=== PATIENT | female | born 1960 | race Caucasian/White ===

== ENCOUNTER 2022-09-19 13:24 | Emergency (ER) | payer OTHER, BC ==
[~2022-09-19] VITALS: Ht 167.6 cm; Wt 100.2 kg
[2022-09-19 13:28] VITALS: BP 142/100
[2022-09-19] MEDS ORDERED: HYDR1TAB94 PO (14:42)
== END 2022-09-19 15:10 | disposition home or self-care (01) ==
LOC: ER 13:24
DX: S63.501A Unspecified sprain of right wrist, initial encounter (principal); W01.10XA Fall on same level from slipping, tripping and stumbling with subsequent striking against unspecified object, initial encounter
CPT/HCPCS: 73110; 99283-25